=== PATIENT | female | born 1995 ===

== ENCOUNTER 2019-06-01 13:40 | Outpatient (CLI) | payer BC ==
--- NOTE | 2019-06-01 14:50 | ULT ---
DIAGNOSTIC LEFT BREAST ULTRASOUND: Date: 06/01/19 CLINICAL HISTORY: Palpable abnormality, upper inner left breast. FINDINGS: There are several traversing breast ducts without evidence of a focal mass, cyst, or other localizabl e pathology. IMPRESSION: BI-RADS Category 2 - Benign findings. There is no suspicious abnormality to account for patient's are a of palpable concern. The patient will be referred back to her clinician for further management in t his regard. Absence of imaging findings should not defer biopsy if there is clinical suspicion for malignancy. Pa tient should return to age-appropriate mammographic screening. POS: OFF
== END 2019-06-01 13:41 | disposition home or self-care (01) ==
LOC: BICULT 13:40
DX: N63.22 Unspecified lump in the left breast, upper inner quadrant (principal)